=== PATIENT | male | born 1985 | race Caucasian/White ===

== ENCOUNTER 2024-07-27 09:22 | Emergency (ER) | payer BC ==
[~2024-07-27] VITALS: Ht 182.9 cm; Wt 95.0 kg
[2024-07-27 09:28] VITALS: O2SAT 90
[2024-07-27] MEDS ORDERED: MORPHINE SULFATE 4 MG/ML INJ (FOR IV/IM USE) IM ONE (10:00)
[2024-07-27] MEDS ORDERED: OXYC-662 MT (11:39)
[2024-07-27] MEDS: MORPHINE SULFATE 4 MG/ML INJ (FOR IV/IM USE) IM NR (12:08)
[2024-07-27 12:09] VITALS: BP 125/89; PULSE 67; RESP 16; TEMP 36.72516; O2SAT 97
== END 2024-07-27 12:12 | disposition home or self-care (01) ==
LOC: ER 09:35
DX: S16.1XXA Strain of muscle, fascia and tendon at neck level, initial encounter (principal); Z98.890 Other specified postprocedural states; V98.8XXA Other specified transport accidents, initial encounter; Y93.89 Activity, other specified; Y92.89 Other specified places as the place of occurrence of the external cause; Y99.8 Other external cause status
CPT/HCPCS: 72125; 96372; 99285; J2270; Z7610 ×2